=== PATIENT | female | born 1980 | race Two or more races ===

== ENCOUNTER → 2016-06-10 | Outpatient (REF) | payer OTHER | LOC: M SFHCLERA 13:04 | PROVIDERS: ATTEND Physician Assistant | DX: J02.9 Acute pharyngitis, unspecified (principal) ==

== ENCOUNTER 2016-11-09 19:32 | Emergency (ER) | payer OTHER ==
[~2016-11-09] VITALS: Ht 167.6 cm; Wt 124.0 kg
[2016-11-09 19:33] VITALS: BP 151/85
[2016-11-09] MEDS ORDERED: SERT-138 PO (19:42)
[2016-11-09] MEDS ORDERED: [UNRECOGNIZED DRUG - CODE] PO (19:42)
[2016-11-09] MEDS ORDERED: NORA0.35 PO (19:42)
[2016-11-09] MEDS ORDERED: MUCI120T PO (19:42)
[2016-11-09] MEDS ORDERED: CLAR5TAB7 PO (19:53)
[2016-11-09] MEDS ORDERED: ZITHTAB PO (19:53)
[2016-11-09] MEDS ORDERED: AZITHROMYCIN 250 MG TAB PO ONE (20:00)
== END 2016-11-09 20:02 | disposition home or self-care (01) ==
LOC: M ED 19:32
DX: J01.10 Acute frontal sinusitis, unspecified (principal); Z79.899 Other long term (current) drug therapy; Z88.0 Allergy status to penicillin

== ENCOUNTER 2017-02-26 08:48 | Emergency (ER) | payer OTHER ==
[~2017-02-26] VITALS: Ht 167.6 cm; Wt 125.0 kg
[~2017-02-26 08:48] MED LIST: CLAR5TAB7 PO; MUCI120T PO; NORA0.35 PO; SERT-138 PO; ZITHTAB PO; [UNRECOGNIZED DRUG - CODE] PO
[2017-02-26] MEDS ORDERED: IBUPROFEN 600 MG TAB PO ONE (09:45)
--- NOTE | 2017-02-26 09:58 | REP ---
Clinical: Trauma. Fall. Pain. Technique: AP, lateral, bilateral oblique views left ankle. Findings: Moderate swelling is appreciated. No acute fracture or dislocation. Skeletal structures and joint spaces are intact and normal. Ankle mortise appears stable. No subcutaneous emphysema or radiodense foreign body. Impression: Moderate swelling. No acute fracture or dislocation identified Signed by Gerardo Rivera MD 02/26/2017 09:49 A
--- NOTE | 2017-02-26 10:04 | REP ---
LEFT TIB/FIB SERIES: Four views. HISTORY: Injury in a fall. FINDINGS: Four views of the left tibia and fibula demonstrate normal bones, joints, and soft tissues. No fracture or subluxation is seen. IMPRESSION: Negative left tib/fib series. Signed by Gutierrez Erickson MD 02/26/2017 11:18 A
[2017-02-26 10:41] VITALS: BP 152/91
== END 2017-02-26 10:42 | disposition home or self-care (01) ==
LOC: M ED 08:48
DX: S93.402A Sprain of unspecified ligament of left ankle, initial encounter (principal); S80.12XA Contusion of left lower leg, initial encounter; W10.9XXA Fall (on) (from) unspecified stairs and steps, initial encounter; Y92.099 Unspecified place in other non-institutional residence as the place of occurrence of the external cause; Y93.9 Activity, unspecified; Y99.9 Unspecified external cause status; F41.9 Anxiety disorder, unspecified; F32.9 Major depressive disorder, single episode, unspecified; Z79.899 Other long term (current) drug therapy; Z88.0 Allergy status to penicillin

== ENCOUNTER 2017-03-14 00:57 | Emergency (ER) | payer OTHER ==
[~2017-03-14] VITALS: Ht 167.6 cm; Wt 121.8 kg
[2017-03-14 00:58] VITALS: BP 140/77
[2017-03-14] MEDS ORDERED: PSEU60TA PO (01:09)
[2017-03-14] MEDS ORDERED: SORE15LO PO (01:09)
[2017-03-14] MEDS ORDERED: ACET325T10 PO (01:09)
[2017-03-14] MEDS ORDERED: ZOFR4TAB3 PO (02:04)
[2017-03-14] MEDS ORDERED: TESS100C PO (02:04)
[2017-03-14] MEDS: BENZONATATE 100 MG CAP PO ONE ×2 (02:13→02:23)
== END 2017-03-14 02:26 | disposition home or self-care (01) ==
LOC: M ED 00:57
DX: J06.9 Acute upper respiratory infection, unspecified (principal); R51 Headache; R09.81 Nasal congestion; F32.9 Major depressive disorder, single episode, unspecified; Z79.899 Other long term (current) drug therapy; Z88.0 Allergy status to penicillin

== ENCOUNTER 2017-07-25 16:41 | Emergency (ER) | payer OTHER ==
[2017-07-25 18:51] LABS: KETONE, URINE AUTO RFX NEGATIVE (NEGATIVE); LEUKOCYTE ESTERASE UR AUTO RFX NEGATIVE (NEGATIVE); MUCUS, URINE RFX SMALL (NEGATIVE); NITRITE, URINE AUTO RFX NEGATIVE (NEGATIVE); RBC, URINE AUTO RFX 8 /HPF (0-3); SPECIFIC GRAVITY UR AUTO RFX 1.017 (1.002-1.035); SQUAM EPITHELIAL CELL UR AURFX 2 /HPF (0-6); WBC, URINE AUTO RFX 2 /HPF (0-3)
[2017-07-25] MEDS: NS 1,000 ML IV (19:32)
[2017-07-25] MEDS: CYCLOBENZAPRINE 10 MG TAB PO (19:33)
[2017-07-25] MEDS: ONDANSETRON 4MG/2ML VIAL (J2405) IV (19:33)
[2017-07-25] MEDS: KETOROLAC 30 MG/ML VIAL (J1885) IV (19:34)
[2017-07-25] MEDS: diphenhydrAMINE INJ 50MG/ML VIAL (J1200) IV (19:34)
[2017-07-25 19:46] LABS: BASO # 0.1 10^3/uL (0.0-0.2); BASO % 0.4 % (0.0-1.0); EOS # 0.3 10^3/uL (0.0-0.50); EOS % 2.7 % (0.0-3.0); HEMATOCRIT 38.8 % (36.0-47.0); HEMOGLOBIN 12.6 g/dl (12.0-15.5); IMMATURE GRANULOCYTE % 0.4 % (0-3.0); LYMPH # 2.8 10^3/uL (1.5-4.5); LYMPH % 23.6 % (24.0-44.0); MEAN CORPUSCULAR HEMOGLOBIN 28.1 pg (27.0-33.0); MEAN CORPUSCULAR HGB CONC 32.5 g/dl (32.0-36.5); MEAN CORPUSCULAR VOLUME 86.4 fl (80.0-96.0); MONO # 0.6 10^3/uL (0.0-0.8); MONO % 4.7 % (0.0-5.0); NEUTROPHILS % 68.2 % (36.0-66.0); PLATELET COUNT, AUTOMATED 349 10^3/uL (150-450); RED BLOOD COUNT 4.49 10^6/uL (4.00-5.40); RED CELL DISTRIBUTION WIDTH 13.2 % (11.5-14.5); WHITE BLOOD COUNT 11.7 10^3/uL (4.0-10.0)
[2017-07-25 20:20] LABS: ANION GAP 6 MEQ/L (8-16); BLOOD UREA NITROGEN 10 MG/DL (7-18); CALCIUM LEVEL 9.2 MG/DL (8.5-10.1); CARBON DIOXIDE LEVEL 30 MEQ/L (21-32); CHLORIDE LEVEL 107 MEQ/L (98-107); CREATININE FOR GFR 0.82 MG/DL (0.55-1.30); FREE T4 0.73 NG/DL (0.76-1.46); GLOMERULAR FILTRATION RATE > 60.0 (>60); GLUCOSE, FASTING 88 MG/DL (70-100); MAGNESIUM LEVEL 2.5 MG/DL (1.8-2.4); POTASSIUM SERUM 3.8 MEQ/L (3.5-5.1); SODIUM LEVEL 143 MEQ/L (136-145)
== END 2017-07-25 20:51 | disposition home or self-care (01) ==
LOC: M ED 16:41
DX: G44.209 Tension-type headache, unspecified, not intractable (principal); S16.1XXA Strain of muscle, fascia and tendon at neck level, initial encounter; X58.XXXA Exposure to other specified factors, initial encounter; Y92.89 Other specified places as the place of occurrence of the external cause; F41.9 Anxiety disorder, unspecified; F33.9 Major depressive disorder, recurrent, unspecified; E28.2 Polycystic ovarian syndrome; Z88.0 Allergy status to penicillin; Z88.5 Allergy status to narcotic agent; Z79.899 Other long term (current) drug therapy
CPT/HCPCS: J1200

== ENCOUNTER → 2018-02-10 | Outpatient (REF) | payer OTHER | LOC: M SFHCLERA 14:49 | DX: J02.9 Acute pharyngitis, unspecified (principal) ==

== ENCOUNTER → 2018-04-11 | Outpatient (REF) | payer OTHER ==
[~2018-04-11] MED LIST changes: +ACET325T10 PO; +CYCL10TA PO; +JUNE1.5T; +PSEU60TA PO; +SORE15LO PO; +TESS100C PO; +ZOFR4TAB14 PO
== END ==
LOC: M SFHCLERA 15:21
PROVIDERS: ATTEND Nurse Practitioner Family
DX: R53.81 Other malaise (principal)